=== PATIENT | male | born 1960 | race Hispanic/Latino ===

== ENCOUNTER 2018-08-30 11:45 | Emergency (ER) | payer MEDICARE ==
[~2018-08-30] VITALS: Ht 172.7 cm; Wt 104.3 kg
[2018-08-30 14:40] VITALS: BP 120/80
--- NOTE | 2018-08-30 14:43 | Diagnostic Imaging Report ---
EXAM: US LOW EXT VEINS LIMITED UNI DATE: 08/30/2018 12:00 AM INDICATION: Left lower extremity swelling COMPARISON: None FINDINGS: Venous evaluation of left lower extremity was performed with castano scale ultrasound, color flow and spectral waveform analysis. The common femoral vein, greater saphenous vein, femoral vein and popliteal vein are patent. Venous augmentation and compressibility was seen. There are no intraluminal filling defects. Distal veins below the knee were not evaluated. IMPRESSION: No evidence for deep vein thrombosis in the left lower extremity. Signed by: Dr. Kameron Flowers M.D. on 08/30/2018 2:39 PM
== END 2018-08-30 14:35 | disposition home or self-care (01) ==
LOC: FSED 11:45
DX: M25.562 Pain in left knee (principal); M79.662 Pain in left lower leg; M79.89 Other specified soft tissue disorders; F20.9 Schizophrenia, unspecified; F79 Unspecified intellectual disabilities
CPT/HCPCS: 93971; 99283